=== PATIENT | female | born 1940 | race Caucasian/White ===

== ENCOUNTER 2020-08-31 18:56 | Emergency (ER) | payer MEDICARE ==
[2020-08-31] MEDS ORDERED: Adenocard IV 6 MG/2 ML IV ONE (19:21)
[2020-08-31] MEDS ORDERED: Cardizem IV 50 MG/10 ML IV ONE (19:29)
[2020-08-31] MEDS ORDERED: CARDIZEM DRIP 100 MG/100 ML D5W 100 ML IV ONE (19:32)
[2020-08-31] MEDS ORDERED: Zofran 4 MG/2 ML VIAL ONE (19:44)
[2020-08-31 19:46] LABS: Absolute Neutrophil Ct (ANC) 4.59 (1.4-6.9); BASOPHIL % 0.4 % (0.0-0.4); Basophil (Absolute #) 0.03 (0-0.4); Eosinophil % 1.9 % (0.00-5.0); Eosinophil (Absolute #) 0.15 (0-0.5); Hemoglobin 15.1 gm/dl (12.0-16.0); Lymphocyte (Absolute #) 2.27 (1.0-4.6); Lymphocytes % 28.7 % (24.0-44.0); Mean Cell Volume 93.7 fl (78-100); Mean Corpuscular Hemoglobin 30.8 pg (26-32); Mean Corpuscular Hgb Concent. 32.8 g/dl (32-36); Mean Platelet Volume 10.6 fl (7.5-11.0); Monocyte (Absolute #) 0.88 (0.0-1.3); Monocytes % 11.1 % (0.0-12.0); Neutrophil % 57.9 % (36.0-66.0); Platelet Count 213 K/mm3 (150-450); Red Blood Count 4.91 M/mm3 (4.1-5.4); Red Cell Distribution Width 12.8 % (11.5-14.0); White Blood Count 7.9 K/mm3 (4.0-10.5)
[2020-08-31 19:49] LABS: INR 1.07 (0.8-3.0); PROTIME 12.1 SECONDS (9.95-12.35)
[2020-08-31 19:51] LABS: PTT 30.4 SECONDS (25.3-37.0)
[2020-08-31 19:58] VITALS: O2SAT 97
[2020-08-31 20:01] LABS: ALBUMIN 4.4 g/dL (3.5-5.0); ALKALINE PHOSPHATASE 82 U/L (38-126); AMYLASE 88 U/L (30-110); ANION GAP 11.7 MEQ/L (5-15); BLOOD UREA NITROGEN 14 mg/dL (7-17); CHLORIDE 95 mmol/L (98-107); Calcium 9.3 mg/dL (8.4-10.2); Carbon Dioxide 29 mmol/L (22-30); Creatinine 1 0.84 mg/dL (0.52-1.04); EST GLOMERULAR FILTRATION RATE > 60.0 ML/MIN; Glucose 116 mg/dL (74-106); LIPASE 123 U/L (23-300); MAGNESIUM 1.8 mg/dL (1.6-2.3); SGOT/AST 32 U/L (14-36); SGPT/ALT 17 U/L (0-35); SODIUM 133 mmol/L (137-145)
[2020-08-31 20:03] LABS: Potassium 2.9 mmol/L (3.5-5.1)
[2020-08-31] MEDS ORDERED: Klor Con 10 MEQ PO ONE (20:06)
[2020-08-31 20:08] LABS: Erythrocyte Sedimentation Rate 5 mm/hr (0-20)
[2020-08-31] MEDS: K-LYTE 25 MEQ PO ONE (20:21)
[2020-08-31] MEDS: Klor Con 10 MEQ PO ONE (20:24)
[2020-08-31] MEDS: Sodium Chloride 0.9% 1000 ML 1,000 ML IV SCH (20:26)
[2020-08-31] MEDS ORDERED: Sodium Chloride 0.9% 1000 ML 1,000 ML ONE (20:26)
[2020-08-31] MEDS: Cardizem IV 50 MG/10 ML IV ONE ×2 (20:28→20:29)
[2020-08-31] MEDS: Adenocard IV 6 MG/2 ML IV ONE (20:30)
[2020-08-31 21:20] LABS: Appearance CLEAR (CLEAR); Bilirubin NEGATIVE (NEGATIVE); Blood NEGATIVE Ery/ul (0-5); Glucose NEGATIVE (NEGATIVE); Ketones NEGATIVE (NEGATIVE); Leukocyte Esterase NEGATIVE (NEGATIVE); Nitrite NEGATIVE (NEGATIVE); Protein,Urine Dip NEGATIVE (Negative); Specific Gravity 1.005 (1.005-1.025); Urobilinogen NEGATIVE mg/dL (0-1)
--- NOTE | 2020-08-31 21:36 | ERPHSYRPT ---
- History of Present Illness Time Seen by Provider: 08/31/20 19:25 Historian: patient Exam Limitations: no limitations Patient Subjective Stated Complaint: pt states "I was started on a new water pill and my heart rate and pulse have been high today." Triage Nursing Assessment: pt ambulated into the er; pt is axo x 4; c/o HTN and tachycardia; pt states she was started on chlorthalidone for HTN; pt came into er with blood pressure of 183/100 and heart rate of 168 bpm; pt states that she has felt tired all day and thought it was because she was outside to long working in the heat; pt states that she gets SOB with excertion; pt denies any edema; pt states that she took 1/2 of her water pill today due to blood pressure being low after talking to PCP office; heart tone is strong and irregular; pt has strong radial and pedal pulses; no edema present to BLE; pt states that she has periods of flutter feeling in her chest; pt states that today she felt nausea; apical pulse 166 bpm; afebrile; tachycardic; HTN Physician History: Patient is a 79-year-old female who came into the ER with a complaint of elevated heart rate and blood pressure at home. She reports she had recently started on hydrochlorothiazide for her blood pressure and soon after developed a tachycardia and hypertension. She also complained of some chest discomfort with the rapid heart rate. When she arrived she had a rate of 160 this would drop down to the 110 120 range frequently and then go back up to 160 she also reports she was on antibiotic 2 weeks ago for sinusitis and she recently has had an episode of the shingles. She does not have anything in the way of a cardiac history apparently Timing/Duration: today, intermittent Activities at Onset: none Quality: dullness Location: substernal Chest Pain Radiation: no radiation Severity of Pain-Max: moderate Modifying Factors: Improves With: nothing Associated Symptoms: palpitations, shortness of breath Prior Chest Pain/Cardiac Workup: no prior cardiac workup Nitro Today/Relief: no nitro taken today Aspirin Treatment Today: no aspirin today Allergies/Adverse Reactions: No Known Drug Allergies Allergy (Unverified 08/31/20 19:07) Home Medications: Chlorthalidone 12.5 mg PO 08/31/20 [History] Lorazepam 0.5 mg [Ativan 0.5 MG] 0.5 mg PO 08/31/20 [History] Trazodone HCl 50 mg [Desyrel 50 mg] 150 mg PO 08/31/20 [History] Hx Tetanus, Diphtheria Vaccination/Date Given: No Hx Influenza Vaccination/Date Given: No Hx Pneumococcal Vaccination/Date Given: No Travel Risk - International Travel Have you traveled outside of the country in past 3 weeks: No - Coronavirus Screening Are you exhibiting any of the following symptoms?: No Close contact with a COVID-19 positive Pt in past 14-21 Days: No - Vaccine Status Have you recieved a Covid-19 vaccination: Yes Vegetable [employer]: [employer] - Vaccination Dates Date of 2cond Vaccination (if applicable): 05/24/20 - Review of Systems Constitutional: No Fever, No Chills Eyes: No Symptoms Ears, Nose, & Throat: No Symptoms Respiratory: No Cough, No Dyspnea Cardiac: Chest Pain, Palpitations, No Edema, No Syncope Abdominal/Gastrointestinal: No Abdominal Pain, No Nausea, No Vomiting, No Diarrhea Genitourinary Symptoms: No Dysuria Musculoskeletal: No Back Pain, No Neck Pain Skin: No Rash Neurological: No Dizziness, No Focal Weakness, No Sensory Changes Psychological: No Symptoms Endocrine: No Symptoms All Other Systems: Reviewed and Negative - Past Medical History Pertinent Past Medical History: Yes Neurological History: No Pertinent History ENT History: No Pertinent History Cardiac History: Hypertension Respiratory History: No Pertinent History Endocrine Medical History: No Pertinent History Musculoskeletal History: No Pertinent History GI Medical History: No Pertinent History History: No Pertinent History Psycho-Social History: Anxiety, Depression Female Reproductive Disorders: No Pertinent History - Past Surgical History Past Surgical History: Yes Neuro Surgical History: No Pertinent History Cardiac: No Pertinent History Respiratory: No Pertinent History Gastrointestinal: No Pertinent History Genitourinary: No Pertinent History Musculoskeletal: No Pertinent History Female Surgical History: Hysterectomy - Social History Smoking Status: Never smoker Exposure to second hand smoke: No Drug Use: none Patient Lives Alone: No - Nursing Vital Signs Nursing Vital Signs: Initial Vital Signs Temperature 98.5 F 08/31/20 19:05 Pulse Rate 160 H 08/31/20 19:05 Respiratory Rate 20 08/31/20 19:05 Blood Pressure 183/100 08/31/20 19:05 O2 Sat by Pulse Oximetry 97 08/31/20 19:05 Pain Scale Pain Intensity 2 - Physical Exam General Appearance: moderate distress, alert Eye Exam: PERRL/EOMI, eyes nml inspection Ears, Nose, Throat Exam: normal ENT inspection, moist mucous membranes Neck Exam: normal inspection, non-tender, supple, full range of motion Respiratory Exam: normal breath sounds, lungs clear, No respiratory distress Cardiovascular Exam: tachycardia Gastrointestinal/Abdomen Exam: soft, No tenderness, No mass Back Exam: normal inspection, No CVA tenderness, No vertebral tenderness Extremity Exam: normal inspection, normal range of motion Neurologic Exam: alert, oriented x 3, cooperative, normal mood/affect, sensation nml, No motor deficits Skin Exam: normal color, warm, dry SpO2: 97 - Course Nursing assessment & vital signs reviewed: Yes EKG Interpreted by Me: RATE ([id number]), Sinus Rhythm, NORMAL INTERVALS, NORMAL QRS, Non-specific ST Changes Ordered Tests: Active Orders 24 hr Category Date Time Status EKG-ER Only STAT Care 08/31/20 19:16 Active IV Insertion STAT Care 08/31/20 19:16 Active AMYLASE Stat Lab 08/31/20 19:30 Completed CBC W DIFF Stat Lab 08/31/20 19:30 Completed CMP Stat Lab 08/31/20 19:30 Completed CULTURE,URINE Stat Lab 08/31/20 20:17 Ordered D-DIMER QUANTITATIVE Stat Lab 08/31/20 19:30 Completed Erythrocyte Sedimentation Rate Stat Lab 08/31/20 19:30 Completed LIPASE Stat Lab 08/31/20 19:30 Completed Lactic Acid Stat Lab 08/31/20 19:16 Completed MAGNESIUM Stat Lab 08/31/20 19:30 Completed NT PRO BNP Stat Lab 08/31/20 19:30 Completed PROTIME WITH INR Stat Lab 08/31/20 19:30 Completed PTT Stat Lab 08/31/20 19:30 Completed TROPONIN Q3H Lab 08/31/20 19:30 Completed TROPONIN Q3H Lab 08/31/20 22:30 Ordered TROPONIN Q3H Lab 09/01/20 01:30 Ordered TROPONIN Q3H Lab 09/01/20 04:30 Ordered TROPONIN Q3H Lab 09/01/20 07:30 Ordered UA W/RFX UR CULTURE Stat Lab 08/31/20 20:17 Completed Medication Summary Generic Name Dose Route Start Last Admin Trade Name Freq PRN Reason Stop Dose Admin Sodium Chloride 1,000 mls @ 100 mls/hr 08/31/20 19:30 08/31/20 20:26 Sodium Chloride 0.9% 1000 Ml IV 09/30/20 19:29 100 mls/hr .Q10H RUBI Administration Potassium Chloride 50 meq 09/01/20 20:23 08/31/20 20:24 Klor Con 10 Meq PO 09/01/20 20:24 50 meq STAT ONE Administration Discontinued Medications Generic Name Dose Route Start Last Admin Trade Name Andreq PRN Reason Stop Dose Admin Adenosine Confirm 08/31/20 19:21 Adenocard Iv 6 Mg/2 Ml Administered 08/31/20 19:22 Dose 6 mg IV .STK-MED ONE Adenosine 6 mg 08/31/20 20:29 08/31/20 20:30 Adenocard Iv 6 Mg/2 Ml IV 08/31/20 20:30 6 mg STAT ONE Administration Diltiazem HCl 5 mg 08/31/20 19:16 08/31/20 20:28 Cardizem Iv 50 Mg/10 Ml IV 08/31/20 19:17 Not Given STAT ONE Diltiazem HCl Confirm 08/31/20 19:29 Cardizem Iv 50 Mg/10 Ml Administered 08/31/20 19:30 Dose 50 mg IV .STK-MED ONE Diltiazem HCl 10 mg 08/31/20 20:28 08/31/20 20:29 Cardizem Iv 50 Mg/10 Ml IV 08/31/20 20:29 10 mg STAT ONE Administration Diltiazem HCl Confirm 08/31/20 19:32 Cardizem Drip 100 Mg/100 Ml D5w Administered 08/31/20 19:33 Dose 100 mls @ ud IV .STK-MED ONE Ondansetron HCl Confirm 08/31/20 19:44 Zofran 4 Mg/2 Ml Vial Administered 08/31/20 19:45 Dose 4 mg .ROUTE .STK-MED ONE Potassium Bicarbonate 50 meq 08/31/20 20:04 08/31/20 20:21 K-Lyte 25 Meq PO 08/31/20 20:05 Not Given STAT ONE Potassium Chloride Confirm 08/31/20 20:06 Klor Con 10 Meq Administered 08/31/20 20:07 Dose 50 meq PO .STK-MED ONE Lab/Rad Data: Laboratory Result Diagrams 08/31/20 19:30 08/31/20 19:30 Laboratory Results 08/31/20 08/31/20 08/31/20 Range/Units 20:17 19:30 19:30 WBC (4.0-10.5) K/mm3 RBC (4.1-5.4) M/mm3 Hgb (12.0-16.0) gm/dl Hct (35-47) % MCV (78-100) fl MCH (26-32) pg MCHC (32-36) g/dl RDW (11.5-14.0) % Plt Count (150-450) K/mm3 MPV (7.5-11.0) fl Gran % (36.0-66.0) % Eos # (Auto) (0-0.5) Absolute Lymphs (auto) (1.0-4.6) Absolute Monos (auto) (0.0-1.3) Lymphocytes % (24.0-44.0) % Monocytes % (0.0-12.0) % Eosinophils % (0.00-5.0) % Basophils % (0.0-0.4) % Absolute Granulocytes (1.4-6.9) Basophils # (0-0.4) ESR (0-20) mm/hr PT 12.1 (9.95-12.35) SECONDS INR 1.07 (0.8-3.0) APTT 30.4 (25.3-37.0) SECONDS D-Dimer 276 (215-500) ng/mL Sodium (137-145) mmol/L Potassium (3.5-5.1) mmol/L Chloride (98-107) mmol/L Carbon Dioxide (22-30) mmol/L Anion Gap (5-15) MEQ/L BUN (7-17) mg/dL Creatinine (0.52-1.04) mg/dL Estimated GFR ML/MIN Glucose (74-106) mg/dL Lactic Acid (0.4-2.0) Calcium (8.4-10.2) mg/dL Magnesium (1.6-2.3) mg/dL Total Bilirubin (0.2-1.3) mg/dL AST (14-36) U/L ALT (0-35) U/L Alkaline Phosphatase (38-126) U/L Troponin I < 0.012 (0.000-0.034) ng/mL NT-Pro-B Natriuret Pep (0-1800) pg/mL Serum Total Protein (6.3-8.2) g/dL Albumin (3.5-5.0) g/dL Amylase (30-110) U/L Lipase (23-300) U/L Urine Color STRAW (YELLOW) Urine Appearance CLEAR (CLEAR) Urine pH 7.0 (5-6) Ur Specific [place] 1.005 (1.005-1.025) Urine Protein NEGATIVE (Negative) Urine Ketones NEGATIVE (NEGATIVE) Urine Blood NEGATIVE (0-5) Brian/ul Urine Nitrite NEGATIVE (NEGATIVE) Urine Bilirubin NEGATIVE (NEGATIVE) Urine Urobilinogen NEGATIVE (0-1) mg/dL Ur Leukocyte Esterase NEGATIVE (NEGATIVE) Urine WBC (Auto) NONE (0-5) /HPF Urine RBC (Auto) NONE (0-2) /HPF U Epithel Cells (Auto) NONE (FEW) /HPF Urine Bacteria (Auto) NONE (NEGATIVE) /HPF Urine Culture Reflexed ORDERED SEPARATELY (NO) Urine Glucose NEGATIVE (NEGATIVE) mg/dL 08/31/20 08/31/20 08/31/20 Range/Units 19:30 19:30 19:16 WBC 7.9 (4.0-10.5) K/mm3 RBC 4.91 (4.1-5.4) M/mm3 Hgb 15.1 (12.0-16.0) gm/dl Hct 46.0 (35-47) % MCV 93.7 (78-100) fl MCH 30.8 (26-32) pg MCHC 32.8 (32-36) g/dl RDW 12.8 (11.5-14.0) % Plt Count 213 (150-450) K/mm3 MPV 10.6 (7.5-11.0) fl Gran % 57.9 (36.0-66.0) % Eos # (Auto) 0.15 (0-0.5) Absolute Lymphs (auto) 2.27 (1.0-4.6) Absolute Monos (auto) 0.88 (0.0-1.3) Lymphocytes % 28.7 (24.0-44.0) % Monocytes % 11.1 (0.0-12.0) % Eosinophils % 1.9 (0.00-5.0) % Basophils % 0.4 (0.0-0.4) % Absolute Granulocytes 4.59 (1.4-6.9) Basophils # 0.03 (0-0.4) ESR 5 (0-20) mm/hr PT (9.95-12.35) SECONDS INR (0.8-3.0) APTT (25.3-37.0) SECONDS D-Dimer (215-500) ng/mL Sodium 133 L (137-145) mmol/L Potassium 2.9 L* (3.5-5.1) mmol/L Chloride 95 L (98-107) mmol/L Carbon Dioxide 29 (22-30) mmol/L Anion Gap 11.7 (5-15) MEQ/L BUN 14 (7-17) mg/dL Creatinine 0.84 (0.52-1.04) mg/dL Estimated GFR > 60.0 ML/MIN Glucose 116 H (74-106) mg/dL Lactic Acid 2.1 H (0.4-2.0) Calcium 9.3 (8.4-10.2) mg/dL Magnesium 1.8 (1.6-2.3) mg/dL Total Bilirubin 0.50 (0.2-1.3) mg/dL AST 32 (14-36) U/L ALT 17 (0-35) U/L Alkaline Phosphatase 82 (38-126) U/L Troponin I (0.000-0.034) ng/mL NT-Pro-B Natriuret Pep 67.0 (0-1800) pg/mL Serum Total Protein 7.0 (6.3-8.2) g/dL Albumin 4.4 (3.5-5.0) g/dL Amylase 88 (30-110) U/L Lipase 123 (23-300) U/L Urine Color (YELLOW) Urine Appearance (CLEAR) Urine pH (5-6) Ur Specific [place] (1.005-1.025) Urine Protein (Negative) Urine Ketones (NEGATIVE) Urine Blood (0-5) Brian/ul Urine Nitrite (NEGATIVE) Urine Bilirubin (NEGATIVE) Urine Urobilinogen (0-1) mg/dL Ur Leukocyte Esterase (NEGATIVE) Urine WBC (Auto) (0-5) /HPF Urine RBC (Auto) (0-2) /HPF U Epithel Cells (Auto) (FEW) /HPF Urine Bacteria (Auto) (NEGATIVE) /HPF Urine Culture Reflexed (NO) Urine Glucose (NEGATIVE) mg/dL - Progress Progress: improved Air Movement: good Blood Culture(s) Obtained: No Antibiotics given: No - Departure Departure Disposition: Transfer (Was transferred to [facility] to the care of Dr. Rao of the hospital service with a plan to get a cardiology consult) Clinical Impression: SVT (supraventricular tachycardia), Hypokalemia, Hypertension, Chest pain Condition: Fair Critical Care Time: Yes Critical Care Time(excluding separately billable procedures): Critical 30-74 mins Referrals: KAIA BARNETT MD [Primary Care Provider] -
[2020-08-31 22:23] VITALS: BP 151/75; PULSE 78
== END 2020-08-31 23:05 | disposition short-term general hospital (02) ==
LOC: ED 18:56
DX: I47.1 Supraventricular tachycardia (principal); E87.6 Hypokalemia; I10 Essential (primary) hypertension; R07.9 Chest pain, unspecified; Z79.899 Other long term (current) drug therapy
CPT/HCPCS: 36000; 36415; 80053; 81001; 82150; 83605; 83690; 83735; 83880; 84484; 85025; 85379; 85610; 85652; 85730; 87086; 93005; 96374; 96375; 99285; 99291; J0153; J2405; A9270-GY